=== PATIENT | male | born 1995 | race Caucasian/White ===

== ENCOUNTER 2025-01-04 10:21 | Outpatient (CLI) | payer MEDICAID ==
--- NOTE | 2025-01-04 11:47 | RADIOLOGY REPORT ---
PROCEDURE: MR MRI HEAD INDICATION: TREMORS, BILATERAL UPPER EXTREMITY PARESTHESIA NECK PAIN EXAM DATE: 01/04/2025 10:42 AM COMPARISON: None TECHNIQUE: MRI of the brain without intravenous contrast. FINDINGS: Diffusion weighted images of the brain demonstrate no evidence of acute infarction. There is no evidence of acute intracranial hemorrhage, extra-axial collection, mass effect, midline s hift, herniation or hydrocephalus. The ventricles, sulci and cisterns appear age appropriate. Single T2 bright focus in the left frontal white matter. Mild atrophy of the right hippocampus. There are no signal abnormalities on the susceptibility weighted sequences. The major vascular flow voids are present. Mild ethmoid sinus disease. The surrounding soft tissues and osseous structures are unremarkable. IMPRESSION: 1. No evidence of acute infarction, intracranial hemorrhage, mass effect or hydrocephalus. Single T2 bright focus in the left frontal white matter is nonspecific. Mild atrophy of the right hippocampus w hich can be seen with mesial temporal sclerosis. Clinical correlation and continued follow-up is rec ommended. Mild ethmoid sinus disease. HS:Y
--- NOTE | 2025-01-04 12:20 | RADIOLOGY REPORT ---
PROCEDURE: MR MRI C SPINE INDICATION: TREMORS/L ARM PARESTHESIA EXAM DATE: 01/04/2025 11:30 AM COMPARISON: None TECHNIQUE: MRI cervical spine without intravenous contrast. FINDINGS: The cervical alignment is intact. The vertebral body heights and marrow signal are within normal brothers its. The visualized posterior fossa and craniocervical junction are intact. The intrinsic cervical cord signal appears intact. There is no prevertebral soft tissue swelling. The visualized paraspina l soft tissues are otherwise unremarkable. Prominent cervical lymph nodes are noted. The following axial levels are detailed below: C2-C3: Unremarkable. C3-C4: Unremarkable. C4-C5: Unremarkable. C5-C6: Unremarkable. C6-C7: Unremarkable. C7-T1: Unremarkable. IMPRESSION: 1. No significant posterior disc disease, spinal canal or neural foraminal narrowing. 2. Intact cervical cord signal. No evidence of cord compression. 3. Prominent cervical lymph nodes are noted. This can be further evaluated with neck ultrasound. HS:Y
== END 2025-01-04 23:59 | disposition home or self-care (01) ==
LOC: MRI02 10:21
PROVIDERS: ATTEND Neuromusculoskeletal Medicine & OMM
DX: J32.2 Chronic ethmoidal sinusitis (principal); R25.1 Tremor, unspecified; R20.2 Paresthesia of skin
CPT/HCPCS: 70551; 72141

== ENCOUNTER 2025-02-27 08:33 | Outpatient (CLI) | payer MEDICAID ==
--- NOTE | 2025-02-27 16:47 | [facility] CONSULT REPORT ---
[facility] Procedure Note [facility] Procedure Note Consult [facility] Note # Demographics Type of EEG Read: - Routine EEG - video Patient Location: Outpatient First Name: Luciano Last Name: Ryland Date of : 1995 Age: 29 Gender: Male Facility: [facility] Time of Initial Page (): 02/27/2025 12:05 First Contact with Site (): 02/27/2025 12:06 # EEG Interpretation Start Time of EEG Read (): 02/27/2025 08:56 Stop Time of EEG Read (): 02/27/2025 09:18 Duration: 0h 22m Technical Details: - This study was recorded using the [employer] EEG software Indication: - seizure # Description Photic Stimulation: Performed Hyperventilation: performed Phases Captured: - awake Symmetry: symmetric Posterior Dominant Rhythm: present, attenuates on eye opening Predominant Frequencies: - posterior dominant alpha (8-12 Hz) - continuous (>90%) Amplitude: normal Reactivity: yes Variability: yes Continuity: continuous # Abnormalities Stimulation: - photic stimulation does NOT cause abnormalities - hyperventilation does NOT cause abnormalities Epileptiform Abnormalities: - NOT present Focal Slowing: no Seizure: - NOT present # Impression Impression: normal # Clinical Correlation Clinical Correlation: A normal EEG does not exclude nor support the diagnosis of epilepsy. # Demographics First Name: Luciano Last Name: Ryland Facility: [facility] Neuro Consult Order placed for: Yes MIKIE LARA MD Feb 27, 2025 16:47
== END 2025-02-27 23:59 | disposition home or self-care (01) ==
LOC: RAD 08:33
PROVIDERS: ATTEND Neuromusculoskeletal Medicine & OMM
DX: R20.2 Paresthesia of skin (principal)
CPT/HCPCS: 95816